=== PATIENT | female | born 1970 | race African-American/Black ===

== ENCOUNTER 2019-01-28 16:46 | Emergency (ER) | payer SELFPAY ==
--- NOTE | 2019-01-28 17:57 | ER ---
Nurse's Notes [facility] Name: Madelaine New Age: 48 yrs Sex: Female : 1970 Arrival Date: 01/28/2019 Time: 16:49 Bed 20 Private MD: None, None Diagnosis: Hemorrhoids Presentation: 01/28 17:38 Presenting complaint: Patient states: bright rectal bleeding on and off that began 1 aa5 week ago. Pt denies abd pain, denies nausea/vomiting/diarrhea. Transition of care: patient was not received from another setting of care. Onset of symptoms was January 2019. 17:38 Method Of Arrival: Ambulatory aa5 17:38 Acuity: NANDO 3 aa5 17:38 Risk Assessment: Do you want to hurt yourself or someone else? Patient reports no aa5 desire to harm self or others. Care prior to arrival: None. 17:38 Initial Sepsis Screen: Does the patient meet any 2 criteria? No. Patient's initial aa5 sepsis screen is negative. Does the patient have a suspected source of infection? No. Patient's initial sepsis screen is negative. 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 - Ebola Screening: : No symptoms or risks identified at this time. - Social history:: Smoking status: . Screenin:00 Abuse screen: Denies threats or abuse. Nutritional screening: No deficits noted. em Tuberculosis screening: No symptoms or risk factors identified. Fall Risk None identified. Assessment: 17:45 Reassessment: pt states "i need to get to my [facility] rehab meeting can i just go the pain tw2 is better", pt educated as to need for examination and that i would notify provider. 17:48 General: Appears in no apparent distress. comfortable, Behavior is calm, cooperative. em Pain: Denies pain. Neuro: Level of Consciousness is awake, alert, obeys commands, Oriented to person, place, time, situation. Cardiovascular: Capillary refill < 3 seconds Patient's skin is warm and dry. Respiratory: Airway is patent Respiratory effort is even, unlabored, Respiratory pattern is regular, symmetrical. Derm: Skin is intact, is healthy with good turgor, Skin is pink, warm \\T\\ dry. Musculoskeletal: Range of motion: intact in all extremities. 17:50 Reassessment: I agree with the above assessment by KIM Caro. tw2 18:00 Reassessment: Patient appears in no apparent distress at this time. No changes from tw2 previously documented assessment. Patient and/or family updated on plan of care and expected duration. Pain level reassessed. Patient is alert, oriented x 3, equal unlabored respirations, skin warm/dry/pink. Vital Signs: 17:41 BP 169 / 106; Pulse 91; Resp 16 S; Temp 98.0(TE); Pulse Ox 99% on R/A; Weight 71.21 kg aa5 (R); Height 5 ft. 4 in. (162.56 cm) (R); Pain 0/10; 17:41 Body Mass Index 26.95 (71.21 kg, 162.56 cm) aa5 ED Course: 16:49 Patient arrived in ED. mr 16:50 None, None is Private Physician. mr 17:10 Patient's name was called from ER lobby. No response. aa5 17:39 Triage completed. aa5 17:48 Douglas Yung NP is PHCP. pm1 17:48 Yoseph Maurer MD is Attending Physician. pm1 17:48 Arm band placed on. em 17:52 Gordo Lundy LVN is Primary Nurse. em 17:53 Served as a side panel hanger during rectal exam. tw2 18:00 Patient has correct armband on for positive identification. Placed in gown. Bed in low em position. Call light in reach. Pulse ox on. NIBP on. 18:00 Patient did not have IV access during this emergency room visit. em Administered Medications: No medications were administered Outcome: 17:56 Discharge ordered by . pm1 18:12 Discharged to home ambulatory. em 18:12 Condition: good 18:12 Discharge instructions given to patient, Instructed on discharge instructions, follow up and referral plans. medication usage, Demonstrated understanding of instructions, follow-up care, medications, Prescriptions given X 2. 18:13 Patient left the ED. em Signatures: Radha Delgado mr Gordo Lundy LVN LVN em Patricia Cruz, RN RN aa5 Douglas Yung, HYDRAULIC JACK MECHANIC HYDRAULIC JACK MECHANIC pm1 Maryann Jeffery, RN RN tw2
--- NOTE | 2019-01-28 17:58 | EDPHYS ---
Physician Documentation [facility] Name: Madelaine New Age: 48 yrs Sex: Female : 1970 Arrival Date: 01/28/2019 Time: 16:49 Bed 20 Private MD: None, None ED Physician Yoseph Maurer HPI: 01/28 17:55 This 48 yrs old Black Female presents to ER via Ambulatory with complaints of Rectal pm1 Bleeding. 17:55 The patient presents to the emergency department with bleeding from the rectum/anus, pm1 that is mild. Onset: The symptoms/episode began/occurred today. Context: the patient has a known history of hemorrhoids. Modifying factors: The symptoms are alleviated by nothing, The symptoms are aggravated by bowel movement. Associate signs and symptoms: Pertinent negatives: abdominal pain, constipation, diarrhea, dysuria, fever, vomiting. The patient has experienced similar episodes in the past, a few times. The patient has not recently seen a physician. 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 - Ebola Screening: : No symptoms or risks identified at this time. - Social history:: Smoking status: . ROS: 17:55 Constitutional: Negative for fever, chills, and weight loss, Eyes: Negative for injury, pm1 pain, redness, and discharge, ENT: Negative for injury, pain, and discharge, Neck: Negative for injury, pain, and swelling, Cardiovascular: Negative for chest pain, palpitations, and edema, Respiratory: Negative for shortness of breath, cough, wheezing, and pleuritic chest pain. 17:55 Back: Negative for injury and pain, : Negative for injury, bleeding, discharge, and swelling, MS/Extremity: Negative for injury and deformity, Skin: Negative for injury, rash, and discoloration, Neuro: Negative for headache, weakness, numbness, tingling, and seizure. 17:55 Abdomen/GI: Positive for rectal bleeding, Negative for abdominal pain, nausea, vomiting, and diarrhea. Exam: 17:55 Constitutional: This is a well developed, well nourished patient who is awake, alert, pm1 and in no acute distress. Head/Face: Normocephalic, atraumatic. Eyes: Pupils equal round and reactive to light, extra-ocular motions intact. Lids and lashes normal. Conjunctiva and sclera are non-icteric and not injected. Cornea within normal limits. Periorbital areas with no swelling, redness, or edema. ENT: Nares patent. No nasal discharge, no septal abnormalities noted. Tympanic membranes are normal and external auditory canals are clear. Oropharynx with no redness, swelling, or masses, exudates, or evidence of obstruction, uvula midline. Mucous membranes moist. Neck: Trachea midline, no thyromegaly or masses palpated, and no cervical lymphadenopathy. Supple, full range of motion without nuchal rigidity, or vertebral point tenderness. No Meningismus. Chest/axilla: Normal chest wall appearance and motion. Nontender with no deformity. No lesions are appreciated. Cardiovascular: Regular rate and rhythm with a normal S1 and S2. No gallops, murmurs, or rubs. Normal PMI, no JVD. No pulse deficits. Respiratory: Lungs have equal breath sounds bilaterally, clear to auscultation and percussion. No rales, rhonchi or wheezes noted. No increased work of breathing, no retractions or nasal flaring. 17:55 Back: No spinal tenderness. No costovertebral tenderness. Full range of motion. Skin: Warm, dry with normal turgor. Normal color with no rashes, no lesions, and no evidence of cellulitis. MS/ Extremity: Pulses equal, no cyanosis. Neurovascular intact. Full, normal range of motion. 17:55 Abdomen/GI: Inspection: abdomen appears normal, Bowel sounds: normal, Palpation: abdomen is soft and non-tender, Rectal exam: rectal tone normal, Stool: guaiac negative, hemorrhoid(s), external, with inflammation, with pain, without bleeding, without thrombosis, 12 and 6 o'clock, tenderness, is not appreciated, Maryann DAUGHERTY. 17:55 Neuro: Orientation: is normal, Motor: is normal, moves all fours. Vital Signs: 17:41 BP 169 / 106; Pulse 91; Resp 16 S; Temp 98.0(TE); Pulse Ox 99% on R/A; Weight 71.21 kg aa5 (R); Height 5 ft. 4 in. (162.56 cm) (R); Pain 0/10; 17:41 Body Mass Index 26.95 (71.21 kg, 162.56 cm) aa5 MDM: 17:49 Patient medically screened. pm1 17:55 Data reviewed: vital signs. Data interpreted: Pulse oximetry: on room air is 99 %. pm1 Interpretation: normal. Counseling: I had a detailed discussion with the patient and/or guardian regarding: the historical points, exam findings, and any diagnostic results supporting the discharge/admit diagnosis, the need for outpatient follow up, a family practitioner, to return to the emergency department if symptoms worsen or persist or if there are any questions or concerns that arise at home. Administered Medications: No medications were administered Disposition: 01/29 09:45 Co-signature as Attending Physician, Yoseph Maurer MD. rn Disposition: 01/28/19 17:56 Discharged to Home. Impression: Hemorrhoids. - Condition is Stable. - Discharge Instructions: Hemorrhoids. - Prescriptions for Colace 100 mg Oral Tablet - take 1 tablet by ORAL route every 12 hours; 14 tablet. Anusol- HC 25 mg Rectal Suppository - insert 1 suppository by RECTAL route every 12 hours As needed; 20 suppository. - Medication Reconciliation Form, Thank You Letter, Antibiotic Education, Prescription Opioid Use form. - Follow up: Emergency Department; When: As needed; Reason: Worsening of condition. Follow up: Private Physician; When: 2 - 3 days; Reason: Recheck today's complaints, Continuance of care, Re-evaluation by your physician. - Problem is new. - Symptoms have improved. Signatures: Gordo Lundy, FINANCIAL UNDERWRITER FINANCIAL UNDERWRITER em Yoseph Maurer MD MD rn Calderon, Audri, RN RN aa5 Douglas Yung NP KILN CLEANER pm1 Maryann Jeffery RN RN tw2 Corrections: (The following items were deleted from the chart) 01/28 18:13 17:56 01/28/2019 17:56 Discharged to Home. Impression: Hemorrhoids. Condition is em Stable. Forms are Medication Reconciliation Form, Thank You Letter, Antibiotic Education, Prescription Opioid Use. Follow up: Emergency Department; When: As needed; Reason: Worsening of condition. Follow up: Private Physician; When: 2 - 3 days; Reason: Recheck today's complaints, Continuance of care, Re-evaluation by your physician. Problem is new. Symptoms have improved. pm1
== END 2019-01-28 18:13 | disposition home or self-care (01) ==
LOC: ER 16:46
DX: K64.9 Unspecified hemorrhoids (principal); I10 Essential (primary) hypertension
CPT/HCPCS: 99283

== ENCOUNTER 2019-02-08 12:58 | Emergency (ER) | payer SELFPAY ==
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
--- NOTE | 2019-02-08 16:06 | RAD REPORT ---
EXAM DESCRIPTION: USExtremity Venous Uni Ltd3/ 3:50 pm CLINICAL HISTORY: Right leg pain and swelling. COMPARISON: None. FINDINGS: Right common femoral, superficial femoral, popliteal and right posterior tibial veins are compressible and demonstrate augmentation. Doppler demonstrates good flow. 5 x 1 x 2 centimeter Lawrence's cyst IMPRESSION: No evidence of deep venous thrombosis involving the right lower extremity. 5 x 1 x 2 centimeter Lawrence's cyst
--- NOTE | 2019-02-08 16:11 | EDPHYS ---
Physician Documentation [facility] Name: Madelaine New Age: 48 yrs Sex: Female : 1970 Arrival Date: 02/08/2019 Time: 13:00 Bed 9 Private MD: ED Physician Matt Pang HPI: 02/08 15:25 This 48 yrs old Black Female presents to ER via Ambulatory with complaints of jmm Hemorrhoids, Leg Pain. 15:25 The patient presents to the emergency department with pain in the rectal area. Onset: jmm The symptoms/episode began/occurred. This is a 48 year old female with a history of htn that presents to the ED with complaints of hemorrhoids ongoing for the past 2 years worsening recently. Patient states she has to use pillows and preparation h for relief. Patient also complaints of 2 months of pain to her right medial knee and complains of swelling to the posterior knee. Patient denies shortness of breath. . Historical: - Allergies: 13:16 No Known Allergies; sv - PMHx: 13:16 Drug addiction (currently going to rehab); Hypertension; sv - PSHx: 13:16 Appendectomy; sv - Immunization history:: Adult Immunizations unknown. - Social history:: Smoking status: Patient/guardian denies using tobacco. - Ebola Screening: : Patient denies exposure to infectious person Patient denies travel to an Ebola-affected area in the 21 days before illness onset. ROS: 15:25 Constitutional: Negative for fever, chills, and weight loss, Cardiovascular: Negative jmm for chest pain, palpitations, and edema, Respiratory: Negative for shortness of breath, cough, wheezing, and pleuritic chest pain. 15:25 Abdomen/GI: Positive for rectal pain. 15:25 MS/extremity: Positive for pain, swelling. 15:25 All other systems are negative. Exam: 15:25 Constitutional: This is a well developed, well nourished patient who is awake, alert, jmm and in no acute distress. Head/Face: atraumatic. Eyes: EOMI, no conjunctival erythema appreciated ENT: Moist Mucus Membranes Neck: Trachea midline, Supple Chest/axilla: Normal chest wall appearance and motion. Cardiovascular: Regular rate and rhythm. No edema appreciated Respiratory: Normal respirations, no respiratory distress appreciated 15:25 Back: Normal ROM Skin: General appearance color normal 15:25 Abdomen/GI: 2 external hemorrhoids noted, no pain or mass appreciated. 15:25 Musculoskeletal/extremity: right medial knee pain on palpation, FROM appreciated, mild popliteal pain on palpation. NVI. 15:25 Skin: Appearance: Color: normal in color. 15:25 Neuro: Orientation: is normal, Mentation: is normal, Memory: is normal. 15:25 Psych: Behavior/mood is pleasant, cooperative. Vital Signs: 13:17 BP 131 / 95; Pulse 98; Resp 16; Temp 97.6; Pulse Ox 98% ; Weight 71.21 kg; Height 5 ft. sv 4 in. (162.56 cm); Pain 8/10; 13:17 Body Mass Index 26.95 (71.21 kg, 162.56 cm) sv MDM: 15:19 Patient medically screened. [facility] 16:08 Data reviewed: vital signs, nurses notes. Counseling: I had a detailed discussion with [facility] the patient and/or guardian regarding: the historical points, exam findings, and any diagnostic results supporting the discharge/admit diagnosis, radiology results, the need for outpatient follow up, to return to the emergency department if symptoms worsen or persist or if there are any questions or concerns that arise at home. ED course: Patient is advised to follow up with orthopedics for further evaluation of her right knee. Patient is prescribed steroid cream for hemorrhoids. Patient is given return precautions. Patient understood and agrees with the plan of care. . 02/08 15:20 Order name: US Extremity Venous Unilateral Ltd; Complete Time: 16:08 [facility] Administered Medications: No medications were administered Disposition: 02/09 06:57 Co-signature as Attending Physician, Matt Pang MD I agree with the assessment and wa plan of care. Disposition: 02/08/19 16:11 Discharged to Home. Impression: Hemorrhoids and perianal venous thrombosis, Bakers Cyst. - Condition is Stable. - Discharge Instructions: Lawrence Cyst, Hemorrhoids. - Prescriptions for Anusol- HC 2.5 % Rectal Cream - Apply to affected area 1 application by TOPICAL route every 8 hours As needed; 30 gram. - Medication Reconciliation Form, Thank You Letter, Antibiotic Education, Prescription Opioid Use form. - Follow up: Gary Durbin MD; When: 2 - 3 days; Reason: Recheck today's complaints, Continuance of care, Re-evaluation by your physician. Follow up: Matt Vuong MD; When: 2 - 3 days; Reason: Recheck today's complaints, Continuance of care, Re-evaluation by your physician. Signatures: Dispatcher [employer] EDDominique Wilson, RN RN Pancho Holt PA PA jmm Smirch, Shelby, RN RN Matt Pang MD MD wa Corrections: (The following items were deleted from the chart) 02/08 16:22 16:11 02/08/2019 16:11 Discharged to Home. Impression: Hemorrhoids and perianal venous ss thrombosis; Bakers Cyst. Condition is Stable. Forms are Medication Reconciliation Form, Thank You Letter, Antibiotic Education, Prescription Opioid Use. Follow up: Dr. Gary Durbin; When: 2 - 3 days; Reason: Recheck today's complaints, Continuance of care, Re-evaluation by your physician. Follow up: Matt Vuong; When: 2 - 3 days; Reason: Recheck today's complaints, Continuance of care, Re-evaluation by your physician. anne
--- NOTE | 2019-02-08 16:11 | ER ---
Nurse's Notes [facility] Name: Madelaine New Age: 48 yrs Sex: Female : 1970 Arrival Date: 02/08/2019 Time: 13:00 Bed 9 Private MD: Diagnosis: Hemorrhoids and perianal venous thrombosis;Bakers Cyst Presentation: 02/08 13:16 Presenting complaint: Patient states: hemorrhoid pain and "I feel like I have a knot on sv the back of my right leg, its been there for a couple of months.". Transition of care: patient was not received from another setting of care. Onset of symptoms is unknown. Care prior to arrival: None. 13:16 Method Of Arrival: Ambulatory sv 13:16 Acuity: NANDO 4 sv 16:20 Risk Assessment: Do you want to hurt yourself or someone else? Patient reports no ss desire to harm self or others. Initial Sepsis Screen: Does the patient meet any 2 criteria? No. Patient's initial sepsis screen is negative. Does the patient have a suspected source of infection? No. Patient's initial sepsis screen is negative. Triage Assessment: 13:18 General: Appears in no apparent distress. uncomfortable, Behavior is calm, cooperative, sv appropriate for age. Pain: Complains of pain in anus and posterior aspect of right knee Pain currently is 8 out of 10 on a pain scale. Neuro: Level of Consciousness is awake, alert, obeys commands, Oriented to person, place, time, situation, Moves all extremities. Full function Gait is steady, Speech is normal. Respiratory: Respiratory effort is even, unlabored, Respiratory pattern is regular, symmetrical. Historical: - Allergies: 13:16 No Known Allergies; sv - PMHx: 13:16 Drug addiction (currently going to rehab); Hypertension; sv - PSHx: 13:16 Appendectomy; sv - Immunization history:: Adult Immunizations unknown. - Social history:: Smoking status: Patient/guardian denies using tobacco. - Ebola Screening: : Patient denies exposure to infectious person Patient denies travel to an Ebola-affected area in the 21 days before illness onset. Screenin:05 Abuse screen: Denies threats or abuse. Denies injuries from another. Nutritional ss screening: No deficits noted. Tuberculosis screening: No symptoms or risk factors identified. Never had TB. Fall Risk None identified. Assessment: 15:05 General: Appears in no apparent distress. comfortable, Behavior is calm, cooperative, ss Denies fever, feeling ill, fatigue, chills. Pain: Complains of pain in anus and posterior aspect of right knee Pain currently is 8 out of 10 on a pain scale. Neuro: Level of Consciousness is awake, alert, obeys commands. Respiratory: Airway is patent Respiratory effort is even, unlabored, Respiratory pattern is regular, symmetrical. GI: Abdomen is non-distended, Reports hemorrhoids, Patient currently denies diarrhea, nausea, vomiting. : Denies burning with urination. EENT: Nares are clear Oral mucosa is moist. Derm: Skin is intact, is healthy with good turgor, Skin is dry, Skin is pink, warm \\T\\ dry. normal. Musculoskeletal: Circulation, motion, and sensation intact. Range of motion: intact in all extremities. 15:47 Reassessment: Pt back from ultrasound. Awaiting results. Assisted HARSH Gilbert with ss rectal exam prior to transportation to ultrasound. Pt tolerated well. Vital Signs: 13:17 BP 131 / 95; Pulse 98; Resp 16; Temp 97.6; Pulse Ox 98% ; Weight 71.21 kg; Height 5 ft. sv 4 in. (162.56 cm); Pain 8/10; 13:17 Body Mass Index 26.95 (71.21 kg, 162.56 cm) sv ED Course: 13:00 Patient arrived in ED. tw3 13:16 Triage completed. sv 13:17 Arm band placed on. sv 15:05 Patient has correct armband on for positive identification. Bed in low position. Call ss light in reach. 15:11 Pancho Chapa PA is PHCP. [facility] 15:11 Matt Pang MD is Attending Physician. jmm 15:46 Anay Mathews, DAT is Primary Nurse. ss 15:51 US Extremity Venous Unilateral Ltd In Process Unspecified. 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 ss 16:10 Gary Durbin MD is Referral Physician. jmm 16:10 Matt Vuong MD is Referral Physician. jmm 16:19 Patient did not have IV access during this emergency room visit. ss Administered Medications: No medications were administered Outcome: 16:11 Discharge ordered by . jmm 16:20 Discharged to home ambulatory. 16:20 Condition: good 16:20 Discharge instructions given to patient, Instructed on discharge instructions, follow up and referral plans. medication usage, Demonstrated understanding of instructions, follow-up care, medications, Prescriptions given X 1. 16:22 Patient left the ED. Signatures: Dispatcher [employer] Dominique Saez, ADT DAUGHERTY Pancho Chapa PA PA jmm Smirch, Shelby, RN RN Eduardo, Antonia tw3
== END 2019-02-08 16:22 | disposition home or self-care (01) ==
LOC: ER 12:58
DX: K64.5 Perianal venous thrombosis (principal); K64.9 Unspecified hemorrhoids; M71.21 Synovial cyst of popliteal space [Baker], right knee; I10 Essential (primary) hypertension
CPT/HCPCS: 93971; 99283